=== PATIENT | female | born 1990 | race African-American/Black ===

== ENCOUNTER 2018-07-16 11:06 | Emergency (ER) | payer OTHER, SELFPAY ==
[~2018-07-16] VITALS: Ht 157.5 cm; Wt 107.5 kg
[~2018-07-16 11:06] MED LIST: SULF1TAB24 PO
[2018-07-16 11:40] VITALS: BP 123/74
[2018-07-16] MEDS ORDERED: DEXAMETHASONE 4 MG TABLET PO STA (12:09)
[2018-07-16] MEDS ORDERED: diphenhydrAMINE HCL 25 MG CAPSULE PO ONE (12:15)
[2018-07-16] MEDS ORDERED: FAMOTIDINE 20 MG TABLET. PO ONE (12:15)
--- NOTE | 2018-07-16 12:25 | PHYS DOC ---
Past Medical History Past Medical History: [place] Past Surgical History: Hysterectomy, Tubal ligation Additional Information: non smoker Alcohol Use: None Drug Use: None Adult General Chief Complaint Chief Complaint: ALLERGIC REACTION HPI HPI Patient is a 28 year old female who presents with hives. Patient ate shrimp one and half hours prior to arrival. Also took naproxen which she started and clindamycin she started Wednesday. Has hives on her face chest and back. Does not have any pain rates it 0 out of 10 but does state that she's having itching. Did not take any medications for the hives prior to arrival. Review of Systems Review of Systems Constitutional: Denies fever or chills [] Eyes: Denies change in visual acuity, redness, or eye pain [] HENT: Denies nasal congestion or sore throat [] Respiratory: Denies cough or shortness of breath [] Cardiovascular: No additional information not addressed in HPI [] GI: Denies abdominal pain, nausea, vomiting, bloody stools or diarrhea [] : Denies dysuria or hematuria [] Musculoskeletal: Denies back pain or joint pain [] Integument: Reports hives on face, neck, and back but denies skin lesions [] Neurologic: Denies headache, focal weakness or sensory changes [] Endocrine: Denies polyuria or polydipsia [] Complete systems were reviewed and found to be within normal limits, except as documented in this note. Current Medications Current Medications Current Medications Medications (Trade) Dose Ordered Sig/Coby Start Time Stop Time Status Last Admin Dose Admin Dexamethasone (Decadron) 10 mg 1X STAT 07/16/18 12:09 07/16/18 12:10 DC 07/16/18 12:24 10 MG Diphenhydramine HCl (Benadryl) 25 mg 1X ONCE 07/16/18 12:15 07/16/18 12:16 DC 07/16/18 12:23 25 MG Famotidine (Pepcid) 20 mg 1X ONCE 07/16/18 12:15 07/16/18 12:16 DC 07/16/18 12:23 20 MG Allergies Allergies Allergies Coded Allergies Type Severity Reaction Last Updated Verified Penicillins Allergy Mild Rash 02/05/13 Yes Physical Exam Physical Exam Constitutional: Well developed, well nourished, no acute distress, non-toxic appearance. [] HENT: Normocephalic, atraumatic, bilateral external ears normal, oropharynx moist, no oral exudates, nose normal. [] Eyes: PERRLA, EOMI, conjunctiva normal, no discharge. [] Neck: Normal range of motion, no tenderness, supple, no stridor. [] Cardiovascular:Heart rate regular rhythm, no murmur [] Lungs & Thorax: Bilateral breath sounds clear to auscultation [] Abdomen: Soft, no tenderness, no masses, no pulsatile masses. [] Skin: Warm, dry, erythema to neck, hives to neck, face, and back.. [] Extremities: No tenderness, no cyanosis, no clubbing, ROM intact, no edema. [] Neurologic: Alert and oriented X 3, normal motor function, normal sensory function, no focal deficits noted. [] Psychologic: Affect normal, judgement normal, mood normal. [] Current Patient Data Vital Signs Vital Signs Date Time Temp Pulse Resp B/P (MAP) Pulse Ox O2 Delivery O2 Flow Rate FiO2 07/16/18 11:40 98.6 83 16 123/74 (90) 98 Room Air 98.6 EKG EKG [] Radiology/Procedures Radiology/Procedures [] Course & Med Decision Making Course & Med Decision Making Pertinent Labs and Imaging studies reviewed. (See chart for details) Discussed signs and symptoms with patient. Will give Pepcid, Benadryl, and dexamethasone in ER. Will discharge home. Recommended to take Benadryl as needed at home as well as Pepcid and follow up with log snaker. Will have stop clindamycin since it was done prophylactically. Patient is agreeable. Alverto Disclaimer Alverto Disclaimer This electronic medical record was generated, in whole or in part, using a voice recognition dictation system. Departure Departure Impression: Primary Impression: Allergic reaction Disposition: HOME, SELF-CARE Condition: STABLE Referrals: NO PCP (PCP) Additional Instructions: Follow up with log snaker and your primary care doctor. If symptoms return or get worse. Come back to ER. Take benadryl, zyrtec, and pepcid as needed per label instructions. Don't eat shrimp until cleared by Environmental Property Assessor. Stop your clindamycin. Problem Qualifiers Primary Impression: Allergic reaction Encounter type: initial encounter Qualified Codes: T78.40XA - Allergy, unspecified, initial encounter HADLEY JENKINS APRN July 16, 2018 12:25
== END 2018-07-16 13:48 | disposition home or self-care (01) ==
LOC: ER 11:06
DX: L50.0 Allergic urticaria (principal); I25.2 Old myocardial infarction; Z90.710 Acquired absence of both cervix and uterus; Z98.51 Tubal ligation status; Z88.0 Allergy status to penicillin
CPT/HCPCS: 99284; J8540; Q0163